=== PATIENT | female | born 1995 | race Caucasian/White ===

== ENCOUNTER → 2016-10-23 | Day surgery (SDC) | payer OTHER ==
[~2016-10-23] MED LIST: Lactated Ringers 1,000 ML IV SCH; Propofol 200 MG/20 ML SDV IV ONE
--- NOTE | 2016-10-23 12:29 | OR ---
DATE OF OPERATION: 10/23/2016 PREOPERATIVE DIAGNOSIS: GASTROESOPHAGEAL REFLUX DISEASE. POSTOPERATIVE DIAGNOSIS: 1. DUODENITIS, MODERATE. 2. GASTROESOPHAGEAL REFLUX DISEASE. SURGEON: Jimbo Pugh MD PROCEDURE: ESOPHAGOGASTRODUODENOSCOPY WITH BIOPSIES X2, GINA. 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 COMPLICATIONS: None. SPECIMEN: 1. Duodenal bulb biopsy x2. 2. Antral GINA. FINDINGS: 1. Full-length EGD. 2. Moderate duodenitis, duodenal bulb. 3. Spontaneous GERD without associated hernia. No esophagitis. RECOMMENDATIONS: The patient will be placed on proton pump therapy and have close medical followup with Dr. Bishop. INDICATIONS: The patient presented to Dr. Bishop's office with persistent reflux which she described as severe and some epigastric pain. Dr. Bishop sent her for EGD. DESCRIPTION OF PROCEDURE: The patient was prepped and draped, placed in the left lateral decubitus position. A lubricated Olympus gastroscope was inserted over bit and advanced to cricopharyngeus area, easily intubated in the esophagus and advanced into the stomach. The Z-line was crisp and sharp around 39 cm. No distal esophagitis, stricturing, ulceration, or hiatal hernia seen. There was spontaneous reflux, but no signs of any inflammatory change. The scope was passed through the stomach and pylorus into the third portion of duodenum. The second and third portion of duodenum appeared unremarkable. Duodenal bulb was very inflamed with moderate duodenitis. No jose ulcerations seen. Two biopsies were taken. Scope was brought back into the stomach and retroflexed. The upper fundus and cardia completely unremarkable. Upon straightening, thorough evaluation of the rest of the gastric mucosa showed no signs of any peptic ulcer disease, polyp, mass or otherwise. CLOtest was obtained. Air was then suctioned. Scope was removed without complication. ZACH/JAIME /[id number]
== END ==
LOC: CC.SDS 10:37
PROVIDERS: ATTEND Family Medicine
DX: K29.80 Duodenitis without bleeding (principal); K21.9 Gastro-esophageal reflux disease without esophagitis; Z79.899 Other long term (current) drug therapy
CPT/HCPCS: 36415; 43239; 84703; 87081; J2704; J7120